=== PATIENT | female | born 1945 | race Caucasian/White ===

== ENCOUNTER 2018-04-16 02:31 | Outpatient (CLI) | payer BC, SELFPAY ==
[2018-04-16 08:34] LABS: Abs Immature Grans 0.02 k/cumm (0.0-0.09); Absolute Basophil Count 0.03 k/cumm (0.0-0.2); Absolute Eosinophil Count 0.17 k/cumm (0.0-0.7); Absolute Lymphocyte Count 1.71 k/cumm (1.2-3.4); Absolute Monocyte Count 0.75 k/cumm (0.11-0.7); Absolute Neutrophil Count 4.07 k/cumm (1.2-6.7); Basophils % 0.4; Eosinophils % 2.5; HCT 36.8 % (36.0-46.0); HGB 12.5 g/dL (12.0-15.5); Immature Grans % 0.3; Lymphocytes % 25.3; Mean Corpuscular Hemoglobin 31.7 pg (27.0-33.0); Mean Corpuscular Volume 93.4 fL (80-95); Mean Platelet Volume 13.3 fL (8.0-11.0); Monocytes % 11.1; Neutrophils % 60.4; RBC 3.94 m/cumm (4.00-5.20); RBC Distribution Width 13.6 % (11.7-14.6); White Blood Cell Count 6.75 k/cumm (4.4-10.8)
[2018-04-16 09:06] LABS: Hemoglobin A1C 7.9 % (4.5-6.2)
[2018-04-16 09:14] LABS: Platelet Count 91 x1000/uL (130-400)
[2018-04-16 09:19] LABS: ALT 37 U/L (12-78); AST 33 U/L (15-37); Albumin 3.2 g/dL (3.4-5.0); Alkaline Phosphatase 67 U/L (46-116); Anion Gap 11.5 mmol/L (3-11); BUN 15 mg/dL (7-18); Bilirubin, Total 0.9 mg/dL (0.2-1.0); CO2 27.5 mmol/L (21.0-32.0); CREATININE 0.53 mg/dL (0.55-1.02); Calcium 9.2 mg/dL (8.5-10.1); Chloride 103 mmol/L (98-107); Cholesterol 130 mg/dL (50-200); Glucose 174 mg/dL (70-100); HDL Cholesterol 40 mg/dL (40-60); LDL CHOLESTEROL 53 mg/dL (<100); Magnesium 1.2 mg/dL (1.8-2.4); Potassium 3.4 mmol/L (3.5-5.1); Sodium 142 mmol/L (136-145); Total Protein 6.7 g/dL (6.4-8.2); Triglyceride 225 mg/dL (30-150)
[2018-04-16 09:33] LABS: Uric Acid 4.1 mg/dL (2.6-6.0)
== END 2018-04-16 02:51 ==
PROVIDERS: PCP Nurse Practitioner Family; Visit Provider Nurse Practitioner Family
DX: I10 Essential (primary) hypertension (principal); E11.9 Type 2 diabetes mellitus without complications; E78.5 Hyperlipidemia, unspecified; E83.42 Hypomagnesemia; M10.9 Gout, unspecified
CPT/HCPCS: 36415; 80053; 80061; 83721; 82043; 82570; 83036; 83735; 84550; 85025

== ENCOUNTER 2019-01-14 16:04 | Outpatient (CLI) | payer BC, SELFPAY ==
[2019-01-14 17:23] LABS: Magnesium 1.5 mg/dL (1.8-2.4); Potassium 3.7 mmol/L (3.5-5.1)
== END 2019-01-14 16:24 ==
PROVIDERS: PCP Nurse Practitioner Family; Visit Provider Nurse Practitioner Family
DX: E83.42 Hypomagnesemia (principal); E87.6 Hypokalemia
CPT/HCPCS: 36415; 83735; 84132

== ENCOUNTER 2019-02-13 00:20 | Outpatient (CLI) | payer BC, SELFPAY ==
--- NOTE | 2019-02-13 14:03 | DI.US_ITS ---
APPROVED REPORT Conclusion Left Ventricle : The left ventricle is normal size. Moderate concentric left ventricular hypertrophy. There is grade 2 diastolic dysfunction LVEF is 65-70%. Right Ventricle : The right ventricle is normal size. The right ventricular systolic function is norm al. Atria : Left atrium is moderately dilated. The right atrium size is normal. Lipomatus atrial septal h ypertrophy is present. Aortic Valve : Aortic valve is trileaflet and mobile. The Aortic valve is mildly sclerotic, moderatel y thickened leaflets. Mild aortic stenosis. No aortic regurgitation is present. Mitral Valve : Moderate mitral annular calcification. The mitral valve is thickened but opens well. M ild mitral regurgitation. No evidence of mitral valve stenosis. Tricuspid Valve : The tricuspid valve is normal in structure. Mild tricuspid regurgitation. Pulmonic Valve : Pulmonic valve is not well visualized. IVC is normal in size and collapses >50% with inspiration. RVSP is estimated to be about 40 mmHg There is no prior echocardiogram available for comparison EXAM: Comprehensive 2D, Doppler, and color-flow Echocardiogram Patient Location: Out-Patient Professor Of Literacy: JASON Gary (AE) Rhythm: NSR Indications: newly recognized heart murmur systolic R01.1.auscult best in aortic region Left Ventricle The left ventricle is normal size. Left ventricular systolic function is hyperdynamic. Moderate andrae ntric left ventricular hypertrophy. Frequent PVCs make wall motion assessment difficult. Likely manish l There is grade 2 diastolic dysfunction LVEF is 65-70%. Right Ventricle The right ventricle is normal size. The right ventricular systolic function is normal. Atria Left atrium is moderately dilated. The right atrium size is normal. Lipomatus atrial septal hypertrop hy is present. Aortic Valve Aortic valve is trileaflet and mobile. The Aortic valve is mildly sclerotic, moderately thickened rm flets. Mild aortic stenosis. No aortic regurgitation is present. Mitral Valve Moderate mitral annular calcification. The mitral valve is thickened but opens well. No evidence of m itral valve stenosis. Mild mitral regurgitation. Tricuspid Valve The tricuspid valve is normal in structure. Mild tricuspid regurgitation. Pulmonic Valve Pulmonic valve is not well visualized. Trace pulmonic regurgitation. Great Vessels The aortic root is normal in size. Aortic arch is 3.0 cm IVC is normal in size and collapses >50% wit h inspiration. Pericardium There is no pericardial effusion. There is no pleural effusion. 2D Dimensions IVSd 1.67 cm F: 0.6-1.0 LV EDV A2C 95.20 mL PWd 1.30 cm F: 0.6 - 1.0 LV EDV A4C 92.00 mL LVDd 5.07 cm F: 3.9 - 5.3 LA Volume Index A2C 44.06 mL/m2 LVDs 3.10 cm F: 2.2 - 3.5 LA Volume Index A4C 55.29 mL/m2 Aortic Root 2.90 cm F: 2.7 - 3.3 LA Volume Index Biplane 50.88 mL/m2 RA Area A4C 10.63 cm2 LA Area A4C 28.08 cm2 LVOT 2.10 cm (M/F) 1.5-2.5 LA Area A2C 25.84 cm2 Ascending Aorta 3.19 cm F: 2.3 - 3.1 EF AP4 61.96 % LVEF (Teich) 68.96 % EF AP2 64.39 % LVEF (Leiva's) 64.12 % F: 54 - 74 EF BP 64.12 % LV Volume 72.41 mL F: 46 - 106 LV Volume Index 36.75 mL/m2 F: 29 - 61 FS 38.87 % LV Diastology E Decel Time 209.00 (160-240 msec) E/A Ratio 0.6 MED E' 0.07 (>0.07 m/s) LV E/e MED 9.93 (<14) LAT E' 0.07 (>0.1 m/s) LV E/e LAT 9.07 (<14) Pulm Vein s 0.66 m/s PV S/D Ratio 1.50 Pulm Vein d 0.44 m/s Pulm Vein a 0.43 m/s A-A Duration 149.18 msec Aortic Valve LVOT Area 3.47 cm2 LVOT Peak Juliocesar. 1.41 m/s LVOT Mean Juliocesar. 1.07 m/s XIAO Vmax 0.00 m/s LVOT Peak Gr. 7.99 mmHg XIAO Vmax Index 0.80 cm2/m2 LVOT Mean Gr. 5.06 mmHg XIAO Mean Juliocesar. 0.00 m/s LVOT VTI 0.29 m XIAO Mean Juliocesar. Index 0.93 cm2/m2 AoV Peak Juliocesar. 3.10 (0.5-1.3 m/s) AoV Mean Juliocesar. 2.03 m/s AO Peak GR. 38.55 mmHg AO Mean GR. 18.45 (<5 mmHg) AO VTI 0.56 (0.18-0.25 m) XIAO (VTI) 1.78 (2.5-4.5 cm2) XIAO (VTI) Index 0.90 cm/m2 Mitral Valve MV E Max Juliocesar. 0.68 (0.4-1.3 m/s) MV A Velocity 1.16 (0.4-1.3 m/s) E/A Ratio 0.58 MV Decel. Time 208.65 (160-240 msec) MV Mean Gr. 2.10 (<2mmHg) MV PHT 60.51 msec MVA PHT 3.64 cm2 Tricuspid Valve TR P. Velocity 3.06 m/s TV Regurg Vmax 3.06 m/s TR P. Gradient 37.55 mmHg
== END 2019-02-13 00:40 ==
PROVIDERS: PCP Nurse Practitioner Family; Visit Provider Nurse Practitioner Family
DX: R01.1 Cardiac murmur, unspecified (principal); I35.0 Nonrheumatic aortic (valve) stenosis; I34.8 Other nonrheumatic mitral valve disorders; I10 Essential (primary) hypertension
CPT/HCPCS: 93306

== ENCOUNTER 2019-11-11 03:48 | Outpatient (CLI) | payer MEDICARE, BC, SELFPAY ==
[2019-11-11 09:31] LABS: Abs Immature Grans 0.01 k/cumm (0.0-0.09); Absolute Basophil Count 0.01 k/cumm (0.0-0.2); Absolute Eosinophil Count 0.23 k/cumm (0.0-0.7); Absolute Lymphocyte Count 1.07 k/cumm (1.2-3.4); Absolute Monocyte Count 0.61 k/cumm (0.11-0.7); Basophils % 0.2; Eosinophils % 4.2; HCT 36.6 % (36.0-46.0); HGB 12.1 g/dL (12.0-15.5); Immature Grans % 0.2 %; Lymphocytes % 19.3; Mean Corp. HGB Concentration 33.1 g/dL (32.0-36.0); Mean Corpuscular Hemoglobin 30.8 pg (27.0-33.0); Mean Corpuscular Volume 93.1 fL (80-95); Mean Platelet Volume 13.5 fL (8.0-11.0); Neutrophils % 65.1; Platelet Count 131 x1000/uL (130-400); RBC 3.93 m/cumm (4.00-5.20); RBC Distribution Width 15.1 % (11.7-14.6); Reticulocyte 2.3 % (0.5-2.4); White Blood Cell Count 5.53 k/cumm (4.4-10.8)
[2019-11-11 10:33] LABS: Iron 54 ug/dL (50-170); Total Iron Binding Capacity 343 ug/dL (250-450); Transferrin Sat 16 % (15-50)
[2019-11-11 10:43] LABS: ESR 62 mm/hr (0-30)
[2019-11-11 11:01] LABS: Calculated LDL 56 mg/dL (<100); Cholesterol 131 mg/dL (<200); Ferritin 72 ng/mL (8-252); Folate > 20.0 ng/mL (8.6-20.0); HDL Cholesterol 35 mg/dL (40-60); Magnesium 1.8 mg/dL (1.8-2.4); Triglyceride 200 mg/dL (<150); Vitamin B12 744 pg/mL (193-986)
[2019-11-11 11:09] LABS: C-Reactive Protein 0.46 mg/dL (0.0-0.3)
== END 2019-11-11 04:08 ==
PROVIDERS: PCP Nurse Practitioner Family; Visit Provider Nurse Practitioner Family
DX: E78.5 Hyperlipidemia, unspecified (principal); D64.9 Anemia, unspecified; E83.42 Hypomagnesemia
CPT/HCPCS: 36415; 80061; 85652; 82272; 82607; 82728; 82746; 83540; 83550; 83735; 85025; 85045; 86140

== ENCOUNTER 2020-01-16 08:52 | Outpatient (CLI) | payer MEDICARE, BC, SELFPAY ==
[2020-01-19 01:33] LABS: SARS-CoV-2 RNA Undetected (Undetected); SARS-CoV-2 Specimen Source Nasal
== END 2020-01-16 09:12 ==
PROVIDERS: PCP Nurse Practitioner Family; Visit Provider Nurse Practitioner Family
DX: Z11.59 Encounter for screening for other viral diseases (principal)
CPT/HCPCS: U0003

== ENCOUNTER 2020-04-02 14:46 | Outpatient (CLI) | payer MEDICARE, BC, SELFPAY ==
--- NOTE | 2020-04-19 09:01 | W.ZIOMONITOR ---
Date of service: 04/19/20 Time of Service: 09:01 14 Day Philanthropy Officer Referring Provider:: Beto Indications:: Palps Note: There is a 14-day monitor ordered for indication of palpitations. ?The patient was in normal sinus rhythm for the majority of the recording with an average heart rate of 82 bpm. ?There were 32 episodes of supraventricular tachycardia with the longest lasting 18 beats at a rate of 188 bpm. ?There were rare supraventricular ectopic beats and rare PVCs. ?There were 3 total runs of ventricular tachycardia with the longest lasting 5 beats. ?There were no episodes of atrial fibrillation, no pauses greater than 3 seconds and no evidence of high degree heart block. ?There was one patient recorded event which corresponds to changing the adhesive on the patch. No arrhythmia was detected.
== END 2020-04-02 15:06 ==
PROVIDERS: PCP Nurse Practitioner Family; Visit Provider Nurse Practitioner Family
DX: I65.23 Occlusion and stenosis of bilateral carotid arteries (principal); R00.2 Palpitations; R09.89 Other specified symptoms and signs involving the circulatory and respiratory systems; I47.1 Supraventricular tachycardia; I47.2 Ventricular tachycardia
CPT/HCPCS: 0296T

== ENCOUNTER 2020-04-05 03:07 | Outpatient (CLI) | payer MEDICARE, BC, SELFPAY ==
[2020-04-05 12:11] LABS: TSH (W/Ref FT4) 1.96 uIU/mL (0.36-3.74)
== END 2020-04-05 03:27 ==
PROVIDERS: PCP Nurse Practitioner Family; Visit Provider Nurse Practitioner Family
DX: R00.2 Palpitations (principal); I65.23 Occlusion and stenosis of bilateral carotid arteries; R09.89 Other specified symptoms and signs involving the circulatory and respiratory systems
CPT/HCPCS: 36415; 84443

== ENCOUNTER 2020-04-06 01:43 | Outpatient (CLI) | payer MEDICARE, BC, SELFPAY ==
--- NOTE | 2020-04-06 07:45 | DI.US_ITS ---
EXAM: US CAROTID CLINICAL HISTORY: Eval carotid calcification (L>R) seen on dental xrAY,CAROTID BRUIT,PALPITAT TECHNIQUE: Ultrasound performed using standard protocol. COMPARISON: No exams were available for comparison FINDINGS: Duplex evaluation of the carotid circulation was performed according to the usual protocol. Note is made of bilateral antegrade vertebral flow. There is mild visible atheromatous plaque in the carotid bifurcations bilaterally. Flow velocities in the common carotid arteries are within normal limits. In the right internal carot id artery, there is flow velocity elevation to 133 cm/second, consistent with stenosis of 50-69 perce nt of the luminal diameter of the vessel. Flow velocities in left internal carotid artery are within normal limits. No hemodynamically signifi cant stenosis seen. IMPRESSION: Flow velocity elevation in right internal carotid artery consistent with 50-[address] stenosis. Incidental note is made of a 26 millimeter in diameter mixed echogenicity right thyroid lobe nodule. Correlation with thyroid ultrasound recommended to evaluate likelihood of malignancy. DATA REPOSITORY:
--- NOTE | 2020-04-19 08:55 | W.ZIOMONITOR ---
Date of service: 04/19/20 Time of Service: 08:55
== END 2020-04-06 02:03 ==
PROVIDERS: PCP Nurse Practitioner Family; Visit Provider Nurse Practitioner Family
DX: I65.21 Occlusion and stenosis of right carotid artery (principal); E04.1 Nontoxic single thyroid nodule
CPT/HCPCS: 93880

== ENCOUNTER 2021-02-03 03:22 | Outpatient (CLI) | payer MEDICARE, BC, SELFPAY ==
[2021-02-03 10:41] LABS: Abs Immature Grans 0.01 10^3/uL (0.0-0.06); Absolute Basophil Count 0.02 10^3/uL (0.0-0.2); Absolute Eosinophil Count 0.11 10^3/uL (0.0-0.7); Absolute Lymphocyte Count 0.79 10^3/uL (1.2-3.4); Absolute Monocyte Count 0.56 10^3/uL (0.1-0.8); Basophils % 0.4; Eosinophils % 2.1; HGB 9.6 g/dL (11.2-15.7); Immature Grans % 0.2; Lymphocytes % 15.2; MCH 30.3 pg (27.0-33.0); MCV 94.6 fL (80-95); MPV 13.6 fL (8.0-11.0); Monocytes % 10.8; Neutrophils % 71.3; Nucleated RBC 0 %; RBC 3.17 10^6/uL (3.93-5.22); WBC 5.19 10^3/uL (4.4-10.8)
[2021-02-03 11:01] LABS: Diff Comment Diff Reviewed; Platelet Count 91 10^3/uL (130-400); RBC Morphology Normal
[2021-02-03 11:40] LABS: ALT 42 U/L (14-59); AST 26 U/L (15-37); Albumin 3.3 g/dL (3.4-5.0); Alkaline Phosphatase 116 U/L (46-116); Anion Gap 9.7 mmol/L (3-11); BUN 33 mg/dL (7-18); Bilirubin, Total 0.7 mg/dL (0.2-1.0); CO2 28.3 mmol/L (21.0-32.0); CREATININE 0.9 mg/dL (0.55-1.02); Calcium 8.9 mg/dL (8.5-10.1); Calculated LDL 59 mg/dL (<100); Chloride 103 mmol/L (98-107); Cholesterol 144 mg/dL (<200); Glucose 334 mg/dL (74-106); HDL Cholesterol 38 mg/dL (40-60); Magnesium 1.4 mg/dL (1.8-2.4); Potassium 3.8 mmol/L (3.5-5.1); Sodium 141 mmol/L (136-145); Total Protein 6.6 g/dL (6.4-8.2); Triglyceride 236 mg/dL (<150)
[2021-02-04 11:06] LABS: Hepatitis C Ab w Rflx HCV PCR Negative (Negative)
== END 2021-02-03 03:23 | disposition home or self-care (01) ==
LOC: LBO 03:22
PROVIDERS: PCP Nurse Practitioner Family; Visit Provider Nurse Practitioner Family
DX: E11.65 Type 2 diabetes mellitus with hyperglycemia (principal); I10 Essential (primary) hypertension; E78.5 Hyperlipidemia, unspecified; E83.42 Hypomagnesemia; K76.0 Fatty (change of) liver, not elsewhere classified; Z11.59 Encounter for screening for other viral diseases; Z79.4 Long term (current) use of insulin; Z51.81 Encounter for therapeutic drug level monitoring
CPT/HCPCS: 36415; 80053; 80061; 86803; 83735; 85025

== ENCOUNTER 2021-02-18 02:15 | Outpatient (CLI) | payer MEDICARE, BC, SELFPAY ==
[2021-02-18 14:18] LABS: Reticulocyte 1.8 % (0.5-2.4)
[2021-02-18 15:01] LABS: Iron 70 ug/dL (50-170); Total Iron Binding Capacity 366 ug/dL (250-450); Transferrin Sat 19 % (15-50)
[2021-02-18 15:30] LABS: Ferritin 18 ng/mL (8-252); Vitamin B12 787 pg/mL (193-986)
[2021-02-18 15:50] LABS: Folate > 20.0 ng/mL (8.6-20.0)
[2021-02-18 16:20] LABS: LDH 172 U/L (81-234)
[2021-02-19 13:39] LABS: Erythropoietin 42.6 mIU/mL (2.6 - 18.5)
== END 2021-02-18 02:16 | disposition home or self-care (01) ==
LOC: LBO 02:15
PROVIDERS: PCP Nurse Practitioner Family; Visit Provider Nurse Practitioner Family
DX: D64.9 Anemia, unspecified (principal); D69.6 Thrombocytopenia, unspecified
CPT/HCPCS: 82668; 82607; 82728; 82746; 83540; 83550; 83615; 85045

== ENCOUNTER 2021-05-05 02:08 | Outpatient (CLI) | payer MEDICARE, SELFPAY ==
--- NOTE | 2021-05-05 06:30 | DI.US_ITS ---
Exam(s) US ABDOMEN EXAM: US ABDOMEN CLINICAL HISTORY: f/u NAFLD w/new thrombocytopenia,hypoalbum ?cirrhosis,k76.0 TECHNIQUE: Ultrasound abdomen performed using standard protocol. COMPARISON: US ABDOMEN ULTRASOUND (P) from 02/04/2010 CT RENAL COLIC WO CONTRAST from 08/13/2014 FINDINGS: ABDOMINAL AORTA AND IVC: Visualized portions normal caliber. PANCREAS: Normal where visualized. LIVER: Heterogeneous echogenicity. The liver measures 18 cm long. There is a nodular contour of the liver. Hepatopedal flow in the Portal Vein. GALLBLADDER: Status post cholecystectomy. BILIARY SYSTEM: Common bile duct measures < 7 mm. No intrahepatic biliary ductal dilation. DUNCAN'S SIGN: Negative. KIDNEYS: Kidneys are symmetric in size. 0.7 cm echogenic focus in the upper pole of the left kidney w hich may represent a nonobstructing stone. No evidence of hydronephrosis. Simple left renal cysts. The largest measures 1.4 cm. SPLEEN: Splenomegaly. The spleen measures 15.5 cm in long. ASCITES: None seen. IMPRESSION: 1. Finding sonographically suggesting hepatic cirrhosis. 2. Hepatosplenomegaly. 3. Status post cholecystectomy. No biliary ductal dilatation. DATA REPOSITORY:
== END 2021-05-05 02:28 ==
PROVIDERS: PCP Nurse Practitioner Family; Visit Provider Nurse Practitioner Family
DX: K76.0 Fatty (change of) liver, not elsewhere classified (principal); R16.2 Hepatomegaly with splenomegaly, not elsewhere classified
CPT/HCPCS: 76700

== ENCOUNTER 2021-05-11 01:09 | Outpatient (CLI) | payer MEDICARE, SELFPAY ==
--- NOTE | 2021-05-11 07:15 | DI.US_ITS ---
Exam(s) US CAROTID EXAM: US CAROTID CLINICAL HISTORY: 1 year f/u carotid stenosis,I65.21. TECHNIQUE: Ultrasound carotids performed using grayscale, color-flow, and spectral Doppler imaging. COMPARISON: US US ABDOMEN from 05/05/2021 FINDINGS: RIGHT CAROTID ARTERY: There is minimal plaque in the right common carotid artery. Some partially calcified plaque is seen on the posterior wall of carotid bulb. No elevated velocitie s at this level. Partially calcified plaque also seen extending into the proximal right ICA. Slight ly elevated velocity recorded in the mid right ICA in the neck (130 cm/sec peak systolic velocity/38 cm/sec end-diastolic velocity) consistent with stenosis between 50-69 percent. LEFT CAROTID ARTERY: Minimal plaque noted in the left common carotid artery. At the left carotid bulb and proximal left ICA there is some calcified plaque noted. Although no vin vated velocities are seen at this level, there is a recording of 142/39 in the upper left ICA in the neck, implying that the stenosis is approximately 50-69 percent. VERTEBRAL ARTERIES: Antegrade flow is demonstrated in both vertebral arteries. Measurements: R Bulb: 68.8cm/s PS / 14.8cm/s ED R CCA: 68.8cm/s PS / 15.4cm/s ED R ECA: 123.4cm/s PS / 12.9cm/s ED R ICA Prox: 113.2cm/s PS /32.2cm/s ED R ICA Mid: 129.7cm/s PS / 38cm/s ED R ICA Distal: 117.3cm/s PS /37.2cm/s ED R Vert: 54.4cm/s PS / 14.5cm/s R SVR: 1.89 R DVR: 2.47 L Bulb: 71.7cm/s PS /15cm/s ED L CCA: 83.9cm/s PS / 18.5cm/s ED L ECA: 82.7cm/s PS /15cm/s ED L ICA Prox:71.1cm/s PS / 17.9cm/s ED L ICA Mid: 111.8cm/sPS / 32.8cm/s ED L ICA Distal: 142.1cm/s PS / 38.8cm/s ED L Vert: 57.2cm/s PS / 18.6cm/s ED L SVR: 1.69 L DVR: 2.1 IMPRESSION: 1. There is calcified plaque at the level of the carotid bulbs and proximal internal carotid arteries bilaterally. Velocity recordings indicate that stenosis is approximately 50-69 percent bilaterally. 2. Antegrade flow is demonstrated in both vertebral arteries. Criteria for Carotid Stenosis: Normal: ICA PSV <125 cm/s no plaque or intimal thickening is visible. <50% stenosis: ICA PSV <125 cm/s and plaque or intimal thickening is visible. 50-69% stenosis: ICA PSV is 125-250 cm/s and plaque is visible. >70% stenosis to near occlusion: ICA PSV >250 cm/s with visible plaque and luminal narrowing. DATA REPOSITORY:
== END 2021-05-11 01:29 ==
PROVIDERS: PCP Nurse Practitioner Family; Visit Provider Nurse Practitioner Family
DX: I65.21 Occlusion and stenosis of right carotid artery (principal)
CPT/HCPCS: 93880

== ENCOUNTER 2021-05-17 02:40 | Outpatient (CLI) | payer MEDICARE, SELFPAY ==
[2021-05-18 09:44] LABS: HBs Antibody, Quant 3.3 mIU/mL (See Note); Hepatitis B Surface Ab Negative (See Note)
[2021-05-18 09:58] LABS: Hepatitis B Surface Ag Negative (Negative)
[2021-05-18 10:46] LABS: Hep B Core Antibody Negative (Negative)
[2021-05-18 11:13] LABS: Hep A Total Ab w Rflx IgM Negative (Negative)
== END 2021-05-17 02:41 | disposition home or self-care (01) ==
LOC: LBO 02:40
PROVIDERS: PCP Nurse Practitioner Family; Visit Provider Nurse Practitioner Family
DX: K74.60 Unspecified cirrhosis of liver (principal)
CPT/HCPCS: 36415; 86704; 86706; 86709; 87340

== ENCOUNTER 2021-05-20 13:18 | Outpatient (CLI) | payer MEDICARE, SELFPAY ==
--- NOTE | 2021-05-20 13:15 | RT.EKG_ITS ---
APPROVED REPORT Exam: Resting ECG Reason for Exam: Irregular heart beat Patient Location: O HR:90 bpm ECG Measurements Heart Rate 90 AXIS AZ 166 P 23 QRSd 97 QRS -41 QT 387 T 81 QTc 471 Conclusion Sinus rhythm...normal P axis, V-rate 60- 99 Atrial premature complexes...SV complexes w/ short R-R intvls LAFB
== END 2021-05-20 13:19 | disposition home or self-care (01) ==
LOC: DI.KIM 13:19
PROVIDERS: PCP Nurse Practitioner Family; Visit Provider Nurse Practitioner Family
DX: I49.8 Other specified cardiac arrhythmias (principal); I49.1 Atrial premature depolarization; I44.4 Left anterior fascicular block
CPT/HCPCS: 93010

== ENCOUNTER 2021-05-23 03:57 | Outpatient (RCR) | payer MEDICARE, SELFPAY ==
--- NOTE | 2021-05-23 11:30 | HOLTER_ITS ---
APPROVED REPORT Conclusion This is a 48-hour Holter monitor ordered for an irregular heart rate Predominant rhythm was sinus with an average heart rate of 92. Minimum was 66, maximum 124 There were occasional ventricular ectopic beats, rare couplets, no ventricular tachycardia There were occasional atrial premature beats. There were multiple 3 beat atrial runs A total of 25 self-limited atrial runs occurred, the longest of which was 11 beats in duration There was no atrial fibrillation, no high-grade AV block, no pauses greater than 3 seconds Patient symptoms corresponded to sinus tachycardia rate 109
== END 2021-05-30 23:59 | disposition home or self-care (01) ==
LOC: RT 03:57
PROVIDERS: PCP Nurse Practitioner Family; Visit Provider Nurse Practitioner Family
DX: I49.8 Other specified cardiac arrhythmias (principal); I49.3 Ventricular premature depolarization; I49.1 Atrial premature depolarization; R00.0 Tachycardia, unspecified
CPT/HCPCS: 93227; 93225; 93226

== ENCOUNTER 2021-06-07 00:56 | Outpatient (CLI) | payer MEDICARE, SELFPAY ==
--- NOTE | 2021-06-07 07:00 | DI.NM_ITS ---
APPROVED REPORT Exam: Pharmacologic Patient Location: Out-Patient Room/Bed: Stress Nurse: Charlee Modi RN Ordering Provider:CRISTAL LOYA, Contact Number: [phone] BMI: 35.95 Baseline Rhythm: Sinus Rhythm Comment: Occasional PACs and PVCs Indications: EKG changes Q waves, r/o ischemia, irregular heart beat Medical History Medical History: Aortic stenosis, arthritis, asthma, CKD, hypertension, hyperlipidemia, obesity, TRUMAN w/ CPAP, TIIDM, non-etoh fatty liver Cardiac Medications: Terazosin, metformin, losartan, linagliptin, insulin glargine, HCTZ, glimepiride , furosemide, atorvastatin, aspirin, albuterol sulfate Allergies: Sulfa, Carbonic anhydrase inhibitors, metoclopramide, benazepril, oxycodone Cardiac Risk Factors: Hypertension, hyperlipidemia, diabetes, asthma, obesity, family hx Previous Cardiac Procedures: None Pretest Chest Pain Characteristics: None Exercise History: Sedentary Physical Disabilities: Legs Lung Sounds: Diminished bases Heart Sounds: Irregular Stress Test Details Test: Pharmacologic stress was paired with low level exercise. Reason for pharmacologic stress test: physical limitation. Nuclear Acquisition: Rest Tc-99m/Stress Tc-99m 1 day Rest Isotope: Tc-99m Sestamibi. Dose: 11.0 Date: 06/07/2021 Injection Time: 0900 Stress Isotope: Tc-99m Sestamibi. Dose: 36.5 Date: 06/07/2021 Injection Time: 1027 HR Resting HR Supine: 83 bpm Max Heart Rate (APMHR): 145.474701 bpm Resting HR Standin bpm Target HR (85% APMHR): 123.966419 bpm Max HR Achieved: 140 bpm % of APMHR: 96.55 Recovery HR: 98 bpm BP Resting BP Supine: 148/82 mmHg Resting BP Standin/80 mmHg Max BP: 180/84 mmHg Recovery BP: 134/68 mmHg ECG Resting ECG: Sinus Rhythm Ectopy: Occasional PACs and PVCs Stress ECG: Sinus Tachycardia ST Change: No significant ST segment changes noted Arrhythmia: Frequent PACs and PVCs Recovery ECG: Sinus Rhythm Recovery ST Change: No significant ST segment changes noted Recovery Arrhythmia: Occasional PACs and PVCs Clinical Stress Symptoms: General Fatigue, Dyspnea Rate Pressure Product: [id number] Stress ECG Conclusion 1. Resting electrocardiogram showed poor R wave progression 2. Patient underwent low-level exercise coupled with pharmacologic stress 3. Normal heart rate and blood pressure response to exercise. The patient achieved 96% of predicted heart rate for age 4. There was no electrocardiographic evidence of myocardial ischemia 5. Occasional atrial and ventricular ectopic beats Stress Test Summary STAGE HR BP Symptoms NOTES Supine 83 148/82 Mild lightheadedness SpO2 95% 1 min post Lexiscan injection 126 164/84 Mild SOB SpO2 93% 3 min post Lexiscan injection 121 180/84 Mild SOB SpO2 95% 6 min post Lexiscan injection 109 174/74 SOB resolved SpO2 96% 9 min post Lexiscan injection 98 134/68 SpO2 96% Pt had baseline lightheadedness prior to stress testing. Pt stated lightheadedness resolved by end of test. Tolerated Regadenoson and low level exercise at 08.mph and 0% grade well. MPI Conclusion Normal myocardial perfusion. There is no evidence of ischemia or prior infarction. EF 53%, normal w all motion Radiologist Interpretation Radiologist Interpretation by: Justin Nichols MD Interpretation Date/Time: 06/07/2021 16:18:01
[2021-06-07] MEDS: Regadenoson 0.4 MG/5 ML SYR IVP (10:51)
== END 2021-06-07 01:16 ==
PROVIDERS: PCP Nurse Practitioner Family; Visit Provider Nurse Practitioner Family
DX: I49.8 Other specified cardiac arrhythmias (principal); R94.31 Abnormal electrocardiogram [ECG] [EKG]; I10 Essential (primary) hypertension; E66.8 Other obesity; E78.5 Hyperlipidemia, unspecified; E11.9 Type 2 diabetes mellitus without complications; J45.909 Unspecified asthma, uncomplicated; Z82.49 Family history of ischemic heart disease and other diseases of the circulatory system
CPT/HCPCS: 78452; 93016; 93018; 93017; J2785

== ENCOUNTER 2021-08-18 16:18 | Outpatient (REF) | payer MEDICARE, SELFPAY ==
[2021-08-18 18:40] LABS: Anion Gap 9.6 mmol/L (3-11); BUN 63 mg/dL (7-18); CO2 23.4 mmol/L (21.0-32.0); CREATININE 1.2 mg/dL (0.55-1.02); Calcium 9.8 mg/dL (8.5-10.1); Chloride 105 mmol/L (98-107); Glucose 117 mg/dL (74-106); Sodium 138 mmol/L (136-145)
== END 2021-08-18 16:19 | disposition home or self-care (01) ==
LOC: LBN 16:18
PROVIDERS: PCP Nurse Practitioner Family; Visit Provider Nurse Practitioner Family
DX: E87.5 Hyperkalemia (principal); N17.9 Acute kidney failure, unspecified
CPT/HCPCS: 80048

== ENCOUNTER 2021-08-25 03:01 | Outpatient (CLI) | payer MEDICARE, SELFPAY ==
[2021-08-25 11:09] LABS: BUN 31 mg/dL (7-18); Calcium 8.6 mg/dL (8.5-10.1); Chloride 107 mmol/L (98-107); Estimated GFR 54.05 (mL/min/1.73m2); Glucose 223 mg/dL (74-106); Potassium 4.5 mmol/L (3.5-5.1); Sodium 141 mmol/L (136-145)
== END 2021-08-25 03:02 | disposition home or self-care (01) ==
LOC: LBO 03:01
PROVIDERS: PCP Nurse Practitioner Family; Visit Provider Nurse Practitioner Family
DX: N17.9 Acute kidney failure, unspecified (principal); N18.9 Chronic kidney disease, unspecified
CPT/HCPCS: 36415; 80048

== ENCOUNTER 2021-09-07 01:40 | Outpatient (CLI) | payer MEDICARE, SELFPAY ==
[2021-09-07 11:38] LABS: Anion Gap 10.4 mmol/L (3-11); BUN 28 mg/dL (7-18); CO2 26.6 mmol/L (21.0-32.0); CREATININE 0.9 mg/dL (0.55-1.02); Calcium 8.7 mg/dL (8.5-10.1); Chloride 105 mmol/L (98-107); Glucose 306 mg/dL (74-106); Potassium 3.9 mmol/L (3.5-5.1); Sodium 142 mmol/L (136-145)
== END 2021-09-07 01:41 | disposition home or self-care (01) ==
LOC: LBO 01:40
PROVIDERS: PCP Nurse Practitioner Family; Visit Provider Nurse Practitioner Family
DX: N17.9 Acute kidney failure, unspecified (principal)
CPT/HCPCS: 36415; 80048

== ENCOUNTER → 2021-09-14 09:19 | Outpatient (CLI) | payer MEDICARE, SELFPAY ==
--- NOTE | 2021-09-14 10:40 | DI.US_ITS ---
APPROVED REPORT EXAM: Comprehensive 2D, Doppler, and color-flow Echocardiogram Patient Location: Out-Patient Freight Tallier: Arti Sal RDCS (AE) Indications: Dyspnea on exertion, Aortic stenosis Other Information Study Quality: Adequate Conclusion Moderate concentric left ventricular hypertrophy. Estimated ejection fraction is 55 to 60%. Wall mo tion is normal Normal right ventricular size and systolic function The left atrium is moderately dilated. The right atrium is normal in size The aortic valve is sclerotic and trileaflet without stenosis or regurgitation Moderate mitral annular calcification. Moderate mitral regurgitation Normal tricuspid valve with mild regurgitation. Estimated right ventricular systolic pressure is 26 mmHg Mildly dilated ascending aorta measuring 3.64 cm Wall motion Left Ventricle The left ventricle is normal size. The left ventricular systolic function is normal. The left ventric ular ejection fraction is within the normal range. Moderate concentric left ventricular hypertrophy. There is normal LV segmental wall motion. There is no ventricular septal defect visualized. LVEF is 5 8%. Right Ventricle The right ventricle is normal size. The right ventricular systolic function is normal. The RVSP is 25 .7 mmHg. Atria Left atrium is moderately dilated. The right atrium size is normal. The interatrial septum is intact with no evidence for an atrial septal defect. Aortic Valve Aortic valve is calcified. Aortic valve is trileaflet. No hemodynamically significant valvular aortic stenosis. No aortic regurgitation is present. Mitral Valve Moderate mitral annular calcification. No evidence of mitral valve stenosis. Moderate mitral regurgit ation. Tricuspid Valve The tricuspid valve is normal in structure. There is no tricuspid valve stenosis. Mild tricuspid regu rgitation. Pulmonic Valve The pulmonary valve is normal in structure. There is no pulmonic valvular stenosis. There is no pulmo fredi valvular regurgitation. Great Vessels The aortic root is normal in size. The ascending aorta is mildly dilated. Aortic arch is normal in ca liber. IVC is normal in size and collapses >50% with inspiration. Pericardium There is no pericardial effusion. 2D Dimensions IVSD d PLAX 1.29 cm F: 0.6-1.0 LV Vol A2C d MOD 127.0 mL LVPW d PLAX 1.29 cm F: 0.6 - 1.0 LV Vol A4C d MOD 148.8 mL LVID d PLAX 4.35 cm F: 3.8 - 5.2 LA vol/ BSA A2C s A-L 140.1 mL/m2 LVDs 2.95 cm F: 2.2 - 3.5 LA vol/ BSA A4C s A-L 150.6 mL/m2 Ao Root d 2.81 cm F: 2.7 - 3.3 LA Vol/ BSA Biplane s A-L 155.7 mL/m2 RA Area A4C 17.27 cm2 LA Area A4C s MOD 31.42 cm2 RA Vol/ BSA A4C s A-L 53.7 mL/m2 LA Area A2C s MOD 28.27 cm2 Ao Asc Diam d 3.64 cm F: 2.3 - 3.1 LV EF A4C MOD 59.9 % LV EF Teichholz 59.3 % LV EF A2C MOD 57.9 % LVEF (Leiva's) 57.78 % F: 54 - 74 LV EF Biplane MOD 57.8 % LV Volume 157.18 mL F: 46 - 106 SV 80.68 mL LV Volume Index 198.96 mL/m2 F: 29 - 61 SV Index 100.97 mL/m2 LV Vol Biplane MOD 139.6 mL FS 31.20 % M-Mode TAPSE 2.67 cm (M/F) >1.7 LV Diastology MV E' medial 0.054 (>0.07 m/s) E/A Ratio 0.6 LV E/e MED 13.05 (<14) MV E Vmax 0.70 (0.4-1.3 m/s) MV E' lateral 0.066 (>0.1 m/s) MV A Vmax 1.25 (0.4-1.3 m/s) LV E/e LAT 10.60 (<14) MV E/A Ratio 0.56 MV E/E' medial 13.05 MV E/E' lateral 10.63 Aortic Valve LVOT Area 3.04 cm2 AoV Area Vmax 1.71 cm2 LVOT Vmax 1.11 m/s AoV Area/ BSA (Vmax) 2.15 cm2/m2 LVOT Mean Juliocesar. 0.76 m/s XIAO Mean Juliocesar. 1.72 cm2 LVOT Peak Grad 4.9 mmHg XIAO Mean Juliocesar. Index 2.16 cm2/m2 LVOT Mean Grad 2.7 mmHg LVOT VTI 0.259 m LVOT Diam s 1.95 cm AoV Vmax 1.97 m/s Velocity Ratio 0.56 AoV Mean Juliocesar. 1.35 m/s AoV Peak Grad 15.6 mmHg LVOT SV 78.72 mL AoV Mean Grad 8.2 mmHg AoV VTI 0.402 m AoV Area VTI 1.96 cm2 AoV Area/ BSA (VTI) 2.45 cm/m2 Mitral Valve MV DT 253 (160-240 msec) MR Vmax 5.25 m/s MV PHT 73 msec MR VTI 1.580 m MV Area PHT 3.00 cm2 MR Peak Grad 110.1 mmHg MV VTI 0.361 m MR Mean Grad 78.3 mmHg MV Area VTI 2.18 (4.0-6.0 cm2) Pulmonary Valve PV Vmax 1.21 (0.5-1.5 m/s) RVOT Peak Gr. 2.94 mmHg PV Peak Grad 5.9 mmHg RVOT Mean Gr. 1.50 mmHg PV Mean Grad 3.0 mmHg RVOT VTI 0.184 m PV VTI 0.248 m RVOT Vmax 0.86 m/s Tricuspid Valve TR Peak Grad 22.7 mmHg TR Vmax 2.38 m/s RA Pressure 3.00 mmHg RVSP (TR) 25.7 mmHg
== END ==
PROVIDERS: PCP Nurse Practitioner Family; Visit Provider Nurse Practitioner Family
DX: I35.0 Nonrheumatic aortic (valve) stenosis (principal); I49.9 Cardiac arrhythmia, unspecified; R06.00 Dyspnea, unspecified
CPT/HCPCS: 93306

== ENCOUNTER 2021-09-23 12:19 | Outpatient (CLI) | payer MEDICARE, SELFPAY ==
[2021-09-23 11:24] LABS: Anion Gap 11.9 mmol/L (3-11); BUN 32 mg/dL (7-18); CO2 25.1 mmol/L (21.0-32.0); CREATININE 1.2 mg/dL (0.55-1.02); Calcium 9.3 mg/dL (8.5-10.1); Chloride 104 mmol/L (98-107); Glucose 353 mg/dL (74-106); Potassium 4.3 mmol/L (3.5-5.1); Sodium 141 mmol/L (136-145)
== END 2021-09-23 12:20 | disposition home or self-care (01) ==
LOC: LBO 12:23
PROVIDERS: PCP Nurse Practitioner Family; Visit Provider Nurse Practitioner Family
DX: E87.5 Hyperkalemia (principal); I10 Essential (primary) hypertension; N17.9 Acute kidney failure, unspecified; N18.9 Chronic kidney disease, unspecified
CPT/HCPCS: 36415; 80048

== ENCOUNTER 2021-10-04 01:51 | Outpatient (CLI) | payer MEDICARE, SELFPAY ==
[2021-10-04 12:33] LABS: HCT 30.8 % (36.0-46.0); HGB 9.9 g/dL (11.2-15.7); MCH 31.3 pg (27.0-33.0); MCHC 32.1 % (32.0-36.0); MCV 98 fL (80-95); Platelet Count 101 10^3/uL (130-400); RBC 3.16 10^6/uL (3.93-5.22); RDW 14.7 % (11.7-14.6); WBC 5.34 10^3/uL (4.4-10.8)
[2021-10-04 12:44] LABS: Anion Gap 13.8 mmol/L (3-11); BUN 43 mg/dL (7-18); CO2 24.2 mmol/L (21.0-32.0); CREATININE 1.1 mg/dL (0.55-1.02); Chloride 104 mmol/L (98-107); Estimated GFR 48.42 (mL/min/1.73m2); Glucose 243 mg/dL (74-106); Potassium 4.2 mmol/L (3.5-5.1); Sodium 142 mmol/L (136-145)
== END 2021-10-04 01:52 | disposition home or self-care (01) ==
LOC: LOS 01:51
PROVIDERS: PCP Nurse Practitioner Family; Visit Provider Nurse Practitioner Adult Health
DX: D50.9 Iron deficiency anemia, unspecified (principal); E11.65 Type 2 diabetes mellitus with hyperglycemia; E87.5 Hyperkalemia; N17.9 Acute kidney failure, unspecified; Z79.4 Long term (current) use of insulin
CPT/HCPCS: 36415; 80048; 85027

== ENCOUNTER 2022-04-19 02:06 | Outpatient (CLI) | payer MEDICARE, SELFPAY ==
[2022-04-19 13:38] LABS: Abs Immature Grans 0.01 10^3/uL (0.0-0.06); Absolute Basophil Count 0.01 10^3/uL (0.0-0.2); Absolute Eosinophil Count 0.11 10^3/uL (0.0-0.7); Absolute Lymphocyte Count 0.82 10^3/uL (1.2-3.4); Absolute Monocyte Count 0.67 10^3/uL (0.1-0.8); Absolute Neutrophil Count 3.39 10^3/uL (1.2-6.7); Basophils % 0.2; Eosinophils % 2.2; HCT 34.2 % (36.0-46.0); Immature Grans % 0.2; Lymphocytes % 16.4; MCH 32.5 pg (27.0-33.0); MCHC 32.2 % (32.0-36.0); MCV 101 fL (80-95); Monocytes % 13.4; Neutrophils % 67.6; RBC 3.38 10^6/uL (3.93-5.22); RDW 14.3 % (11.7-14.6); RDW-SD 53.1 fL; WBC 5.01 10^3/uL (4.4-10.8)
[2022-04-19 13:51] LABS: Platelet Count 82 10^3/uL (130-400)
[2022-04-19 14:17] LABS: Ferritin 46 ng/mL (8-252)
== END 2022-04-19 02:07 | disposition home or self-care (01) ==
LOC: LBO 02:06
PROVIDERS: PCP Nurse Practitioner Family; Visit Provider Nurse Practitioner Adult Health
DX: D50.9 Iron deficiency anemia, unspecified (principal); D69.6 Thrombocytopenia, unspecified
CPT/HCPCS: 36415; 82728; 85025

== ENCOUNTER 2022-08-03 03:23 | Outpatient (CLI) | payer MEDICARE, SELFPAY ==
[2022-08-03 10:05] LABS: Calculated LDL 53 mg/dL (<100); Cholesterol 148 mg/dL (<200); HDL Cholesterol 39 mg/dL (40-60); Triglyceride 281 mg/dL (<150)
[2022-08-03 10:23] LABS: Uric Acid 5.1 mg/dL (2.6-6.0)
[2022-08-03 10:26] LABS: COMMENT (LAB VIEW ONLY) 69.91 mg/dL
[2022-08-03 10:31] LABS: Microalb ug/mg Crea 230.6 ug/mg Cr
== END 2022-08-03 03:24 | disposition home or self-care (01) ==
LOC: LBO 03:23
PROVIDERS: PCP Nurse Practitioner Family; Visit Provider Nurse Practitioner Family
DX: E11.9 Type 2 diabetes mellitus without complications (principal); E78.5 Hyperlipidemia, unspecified; M10.9 Gout, unspecified
CPT/HCPCS: 36415; 80061; 82043; 82570; 84550

== ENCOUNTER 2022-08-24 01:09 | Outpatient (CLI) | payer MEDICARE, SELFPAY ==
--- NOTE | 2022-08-24 07:00 | DI.US_ITS ---
Exam(s) US CAROTID EXAM: US CAROTID CLINICAL HISTORY: 1 yr f/u RT CAROTID STENOSIS,I65.21. TECHNIQUE: Ultrasound carotids performed using grayscale, color-flow, and spectral Doppler imaging. COMPARISON: US US CAROTID from 05/11/2021 FINDINGS: RIGHT CAROTID ARTERY: Plaque: Calcific plaque is seen in the carotid bulb. Velocity elevation: Yes. Please see below. LEFT CAROTID ARTERY: Plaque: Calcific plaque is seen in the proximal left ICA. Velocity elevation: None. VERTEBRAL ARTERIES: Antegrade flow. Measurements: R Bulb: 96.5 cm/s PS / 26.2 cm/s ED R CCA: 69.8 cm/s PS / 28.6 cm/s ED R ECA: 118.3 cm/s PS / 18.9 cm/s ED R ICA Prox: 147.1 cm/s PS / 44.9 cm/s ED R ICA Mid: 137.3 cm/s PS / 37 cm/s ED R ICA Distal: 96.3 cm/s PS /33.8 cm/s ED R Vert: 52.8 cm/s PS / 23.2 cm/s ED R SVR: 2.1 R DVR: 1.6 L Bulb: 86.5 cm/s PS / 26.4 cm/s ED L CCA: 75.4 cm/s PS / 28.4 cm/s ED L ECA: 95.4 cm/s PS / 11.8 cm/s ED L ICA Prox: 108.9 cm/s PS / 40 cm/s ED L ICA Mid: 121.6 cm/s PS / 38.6 cm/s ED L ICA Distal: 124.5 cm/s PS / 59.6 cm/s ED L Vert: 60.3 cm/s PS / 21.3 cm/s ED L SVR: 1.7 L DVR: 2.1 IMPRESSION: 1. Based on velocity measurements, there is approximately 50-69 percent stenosis in the right ICA. 2. No hemodynamically significant stenosis is seen on the left at this time. Criteria for Carotid Stenosis: Normal: ICA PSV <125 cm/s no plaque or intimal thickening is visible. <50% stenosis: ICA PSV <125 cm/s and plaque or intimal thickening is visible. 50-69% stenosis: ICA PSV is 125-250 cm/s and plaque is visible. >70% stenosis to near occlusion: ICA PSV >250 cm/s with visible plaque and luminal narrowing. DATA REPOSITORY:
== END 2022-08-24 01:29 ==
LOC: DI 01:09
PROVIDERS: PCP Nurse Practitioner Family; Visit Provider Nurse Practitioner Family
DX: I65.21 Occlusion and stenosis of right carotid artery (principal)
CPT/HCPCS: 93880

== ENCOUNTER 2023-05-22 16:10 | Outpatient (REF) | payer MEDICARE, SELFPAY ==
[2023-05-23 23:26] LABS: Campylobacter PCR Negative (Negative); Salmonella PCR Negative (Negative); Shiga Toxin PCR Negative (Negative); Shigella/Enteroinvasive Ecoli Negative (Negative)
== END 2023-05-22 16:11 | disposition home or self-care (01) ==
LOC: NCHCN 16:10
PROVIDERS: PCP Nurse Practitioner Family; Visit Provider Nurse Practitioner
DX: D64.9 Anemia, unspecified (principal); K92.1 Melena; R19.7 Diarrhea, unspecified
CPT/HCPCS: 87505; 87177

== ENCOUNTER 2023-05-22 20:45 | Outpatient (CLI) | payer MEDICARE, SELFPAY ==
[2023-05-22 16:00] LABS: Abs Immature Grans 0.01 10^3/uL (0.0-0.06); Absolute Basophil Count 0.03 10^3/uL (0.0-0.2); Absolute Eosinophil Count 0.18 10^3/uL (0.0-0.7); Absolute Monocyte Count 0.77 10^3/uL (0.1-0.8); Absolute Neutrophil Count 3.58 10^3/uL (1.2-6.7); Basophils % 0.6; Eosinophils % 3.4; HCT 35.6 % (36.0-46.0); HGB 11.8 g/dL (11.2-15.7); Immature Grans % 0.2; Lymphocytes % 14.9; MCH 33.2 pg (27.0-33.0); MCHC 33.1 % (32.0-36.0); MCV 100 fL (80-95); MPV 13.1 fL (8.0-11.0); Monocytes % 14.3; Neutrophils % 66.6; RBC 3.55 10^6/uL (3.93-5.22); RDW 13.7 % (11.7-14.6); RDW-SD 50.4 fL; WBC 5.37 10^3/uL (4.4-10.8)
[2023-05-22 16:14] LABS: Platelet Count 81 10^3/uL (130-400)
[2023-05-22 16:15] LABS: Diff Comment PLT Morph Reviewed; RBC Morphology Normal
[2023-05-22 17:08] LABS: ALT 39 U/L (14-59); AST 29 U/L (15-37); Albumin 3.5 g/dL (3.4-5.0); Alkaline Phosphatase 125 U/L (46-116); Anion Gap 10.1 mmol/L (3-11); BUN 27 mg/dL (7-18); Bilirubin, Total 1.5 mg/dL (0.2-1.0); CO2 25.9 mmol/L (21.0-32.0); CREATININE 1.1 mg/dL (0.55-1.02); Calcium 9.4 mg/dL (8.5-10.1); Chloride 106 mmol/L (98-107); Estimated GFR 51.75 (mL/min/1.73m2); Ferritin 86 ng/mL (8-252); Glucose 138 mg/dL (74-106); Sodium 142 mmol/L (136-145); Total Protein 7.5 g/dL (6.4-8.2)
== END 2023-05-22 20:46 | disposition home or self-care (01) ==
LOC: LBO 20:45
PROVIDERS: PCP Nurse Practitioner Family; Visit Provider Nurse Practitioner
DX: D64.9 Anemia, unspecified (principal); K92.1 Melena
CPT/HCPCS: 36415; 80053; 82728; 85025

== ENCOUNTER 2023-05-25 14:51 | Outpatient (REF) | payer MEDICARE, SELFPAY ==
[2023-05-29 19:26] LABS: Calprotectin 130 mcg/g
== END 2023-05-25 14:52 | disposition home or self-care (01) ==
LOC: LBN 14:51
PROVIDERS: PCP Nurse Practitioner Family; Visit Provider Nurse Practitioner
DX: R19.7 Diarrhea, unspecified (principal)
CPT/HCPCS: 87493; 83993

== ENCOUNTER 2023-09-25 13:54 | Outpatient (CLI) | payer MEDICARE, SELFPAY ==
[2023-09-25 15:25] LABS: Anion Gap 11.7 mmol/L (3-11); BUN 24 mg/dL (7-18); CO2 27.3 mmol/L (21.0-32.0); CREATININE 1.1 mg/dL (0.55-1.02); Chloride 105 mmol/L (98-107); Estimated GFR 51.75 (mL/min/1.73m2); Glucose 170 mg/dL (74-106); Sodium 144 mmol/L (136-145)
[2023-09-25 15:35] LABS: Calcium 9.6 mg/dL (8.5-10.1)
== END 2023-09-25 13:55 | disposition home or self-care (01) ==
LOC: LBO 13:54
PROVIDERS: PCP Nurse Practitioner Family; Visit Provider Nurse Practitioner
DX: N17.9 Acute kidney failure, unspecified (principal)
CPT/HCPCS: 36415; 80048

== ENCOUNTER 2024-06-10 02:05 | Outpatient (CLI) | payer MEDICARE, SELFPAY ==
--- NOTE | 2024-06-10 06:15 | DI.US_ITS ---
Exam(s) US CAROTID EXAM: US CAROTID CLINICAL HISTORY: F/U RT CAROTID STENOSIS,I65.21. TECHNIQUE: Ultrasound carotids performed using grayscale, color-flow, and spectral Doppler imaging. COMPARISON: US US CAROTID from 08/24/2022 FINDINGS: CAROTID ARTERIES: There is some plaque demonstrated at the level the carotid bulbs and proximal inter nal carotid arteries bilaterally, this being more prominent on the right side. There are mildly elev ated velocities in the mid and distal right ICA in the neck maximum peak systolic velocity 145 cm/sec . Estimated at 50-69 percent stenosis. There is some plaque at similar location on the opposite-lef t side but without elevated velocities indicating amount of stenosis less than 50 percent. VERTEBRAL ARTERIES: Antegrade flow demonstrated in both vertebral arteries.. Measurements: R Bulb: 69.8cm/s PS / 18cm/s ED R CCA: 60.8cm/s PS / 15.4cm/s ED R ECA: 113cm/s PS / 23.7cm/s ED R ICA Prox: 86.9cm/s PS / 32.5cm/s ED R ICA Mid: 119.6cm/s PS / 41.2cm/s ED R ICA Distal: 144.8cm/s PS /39.2cm/s ED R Vert: 40.9cm/s PS / 13.4cm/s ED R SVR: 2 R DVR: 2.7 L Bulb: 83.8cm/s PS / 21.7cm/s ED L CCA: PS / 21.7cm/s ED L ECA: 114.8cm/s PS / 18.1cm/s ED L ICA Prox: 100.2cm/s PS / 36.3cm/s ED L ICA Mid: 107.5cm/s PS / 34.5cm/s ED L ICA Distal: 103.9cm/s PS / 34.5cm/s ED L Vert: 53cm/s PS / 22.2cm/s ED L SVR: 1.3 L DVR: 1.6 IMPRESSION: Plaque in both carotid bulbs and proximal ICAs, more so on the right side where there are mildly elev ated velocities indicating right-sided stenosis of approximately 50-69 percent. Amount of stenosis o n the opposite-left side is less than 50 percent. Antegrade flow is demonstrated in both vertebral arteries. Occasional irregular heart beats noted during this doppler study. Criteria for Carotid Stenosis: Normal: ICA PSV <125 cm/s no plaque or intimal thickening is visible. <50% stenosis: ICA PSV <125 cm/s and plaque or intimal thickening is visible. 50-69% stenosis: ICA PSV is 125-250 cm/s and plaque is visible. >70% stenosis to near occlusion: ICA PSV >250 cm/s with visible plaque and luminal narrowing. DATA REPOSITORY:
== END 2024-06-10 02:25 ==
LOC: DI 02:05
PROVIDERS: PCP Nurse Practitioner; Visit Provider Nurse Practitioner
DX: I65.21 Occlusion and stenosis of right carotid artery (principal)
CPT/HCPCS: 93880

== ENCOUNTER 2024-10-15 14:30 | Outpatient (CLI) | payer MEDICARE, SELFPAY ==
[2024-10-16 10:30] LABS: Lyme Ab w Rflx to Lyme Confirm Negative (Negative)
[2024-10-18 11:58] LABS: Anaplasma phagocytophilum Negative (Negative); B. miyamotoi PCR Negative (Negative); Babesia divergens/MO-1 Negative (Negative); Babesia duncani Negative (Negative); Babesia microti Negative (Negative); Ehrlichia chaffeensis Negative (Negative); Ehrlichia ewingii/canis Negative (Negative); Ehrlichia muris eauclairensis Negative (Negative)
== END 2024-10-15 14:31 | disposition home or self-care (01) ==
LOC: LBO 14:30
PROVIDERS: PCP Nurse Practitioner; Visit Provider Family Medicine
DX: T14.90XA Injury, unspecified, initial encounter (principal); W57.XXXA Bitten or stung by nonvenomous insect and other nonvenomous arthropods, initial encounter
CPT/HCPCS: 36415; 87798; 86618

== ENCOUNTER 2025-01-07 08:35 | Outpatient (CLI) | payer MEDICARE, SELFPAY ==
--- NOTE | 2025-01-07 08:30 | RT.EKG_ITS ---
APPROVED REPORT Exam: Resting ECG Reason for Exam: Cardiac history Patient Location: O HR:82 bpm ECG Measurements Heart Rate 82 AXIS OH 134 P 27 QRSd 134 QRS -40 QT 435 T 19 QTc 508 Conclusion Sinus rhythm...normal P axis, V-rate 50- 99 Left anterior fascicular block
== END 2025-01-07 08:36 | disposition home or self-care (01) ==
LOC: DI.KIM 08:36
PROVIDERS: PCP Nurse Practitioner; Visit Provider Family Medicine
DX: Z98.890 Other specified postprocedural states (principal); I48.92 Unspecified atrial flutter; I44.4 Left anterior fascicular block
CPT/HCPCS: 93010

== ENCOUNTER 2025-01-07 14:50 | Outpatient (CLI) | payer MEDICARE, SELFPAY ==
[2025-01-07 10:22] LABS: Abs Immature Grans 0.01 10^3/uL (0.0-0.06); HCT 34.6 % (36.0-46.0); HGB 11.7 g/dL (11.2-15.7); Immature Grans % 0.2 %; MCH 33.6 pg (27.0-33.0); MCHC 33.8 % (32.0-36.0); MCV 99 fL (80-95); MPV 13.1 fL (8.0-11.0); RBC 3.48 10^6/uL (3.93-5.22); RDW 13.9 % (11.7-14.6); RDW-SD 50.5 fL; WBC 4.62 10^3/uL (4.4-10.8)
[2025-01-07 10:34] LABS: Ammonia 33 umol/L (11-32)
[2025-01-07 10:36] LABS: Glucose Negative (Negative)
[2025-01-07 10:36] LABS: Platelet Count 59 10^3/uL (130-400); RBC Morphology Normal
[2025-01-07 10:41] LABS: RBC Negative HPF (0-2); WBC Negative HPF (0-5)
[2025-01-07 10:42] LABS: C & S Indicated? No
[2025-01-07 10:43] LABS: Hemoglobin A1C 6.1 % (<5.7)
[2025-01-07 11:03] LABS: ALT 39 U/L (14-59); AST 31 U/L (15-37); Albumin 3.1 g/dL (3.4-5.0); Alkaline Phosphatase 123 U/L (46-116); Anion Gap 9.0 mmol/L (3-11); BUN 30 mg/dL (7-18); Bilirubin, Total 1.6 mg/dL (0.2-1.0); CO2 27.0 mmol/L (21.0-32.0); Calcium 9.5 mg/dL (8.5-10.1); Calculated LDL 47 mg/dL (<100); Chloride 106 mmol/L (98-107); Cholesterol 110 mg/dL (<200); Estimated GFR 65.44 (mL/min/1.73m2); Glucose 142 mg/dL (74-106); HDL Cholesterol 34 mg/dL (>or=50); Potassium 4.1 mmol/L (3.5-5.1); Sodium 142 mmol/L (136-145); TSH 1.33 uIU/mL (0.36-3.74); Total Protein 6.6 g/dL (6.4-8.2); Triglyceride 147 mg/dL (<150)
[2025-01-07 11:13] LABS: Uric Acid 4.4 mg/dL (2.6-6.0)
== END 2025-01-07 14:51 | disposition home or self-care (01) ==
PROVIDERS: PCP Nurse Practitioner; Visit Provider Family Medicine
DX: E78.5 Hyperlipidemia, unspecified (principal); Z13.9 Encounter for screening, unspecified; N18.31 Chronic kidney disease, stage 3a; E79.0 Hyperuricemia without signs of inflammatory arthritis and tophaceous disease; R53.83 Other fatigue; E11.9 Type 2 diabetes mellitus without complications; K74.60 Unspecified cirrhosis of liver
CPT/HCPCS: 80053; 80061; 81003; 81015; 82140; 83036; 84443; 84550; 85025

== ENCOUNTER 2025-01-15 04:59 | Emergency (ER) | payer MEDICARE, SELFPAY ==
[2025-01-15] VITALS (48 sets, daily range): BP systolic 107–153; BP diastolic 38–98; PULSE 57–166; RESP 12–33; TEMP 36.6; O2SAT 90–96
--- NOTE | 2025-01-15 05:00 | RT.EKG_ITS ---
APPROVED REPORT Exam: Resting ECG Reason for Exam: high heart rate Patient Location: E HR:165 bpm ECG Measurements Heart Rate 165 AXIS LA 128 P -85 QRSd 88 QRS -43 QT 314 T 53 QTc 520 Conclusion Supraventricular tachycardia...V-rate>(220-age), QRSd<120 Probable LVH with secondary repol abnrm...multiple LVH criteria Inferior infarct, old...Q >35mS, II III aVF SVT vs Aflutter NS ST changes likely rate related Borderline left axis Normal interval
--- NOTE | 2025-01-15 05:02 | ED.GENADUL_ITS ---
Discharge Plan Discharge Details Chief Complaint: Arrhythmia Primary Care Provider: Elba Juarez ED Provider: Justin Walker Home Meds and New Rx's Prescriptions: No Action Slow-Mag 71.5 mg tablet,delayed release (DR/EC) 71.5 mg PO BID Qty: 180 0RF folic acid 1 mg tablet 1 mg PO DAILY Qty: 90 3RF atorvastatin 40 mg tablet See Rx Instructions .ROUTE .COMPLEX Qty: 90 3RF Dose Instruction: TAKE ONE TABLET BY MOUTH EVERY DAY TO LOWER CHOLESTEROL Rx Instructions: TAKE ONE TABLET BY MOUTH EVERY DAY TO LOWER CHOLESTEROL glimepiride 4 mg tablet 4 mg PO DAILY spironolactone 25 mg tablet 12.5 mg PO BID (DME) diabetic shoes See Rx Instructions .Route .MEDSUPPLY Qty: 1 0RF Rx Instructions: As directed doxycycline hyclate 100 mg capsule 100 mg PO BID Qty: 28 0RF fluticasone propion-salmeterol 115-21 mcg/actuation HFA aerosol inhaler 2 puff inhalation BID Qty: 12 11RF multivitamin [Daily Vitamin] 1 EACH tablet 1 ea PO DAILY fluticasone propionate 16 GM spray,suspension 50 mcg NS DAILY PRN Patient Comments: 05/15/14 Uses prn. mkf Rx Instructions: per [facility] 10/23/12 ([facility] [place] OneTouch Ultra Test 1 EACH strip 1 ea Miscellaneous DAILY Qty: 100 Rx Instructions: to check BS for DM 250.00 to keep A1c under 7.0 (DME) lancets [OneTouch Delica Lancets] 1 EACH misc 1 ea Miscellaneous DAILY Qty: 100 Rx Instructions: to check BS for DM 250.00 to keep A1c under 7.0. albuterol sulfate [Proventil HFA] 6.7 GM HFA aerosol inhaler 1 - 2 puff Inhalation Q4-6H PRN Qty: 1 3RF Rx Instructions: Dispense whichever brand albuterol inhaler is covered by insurance cholecalciferol (vitamin D3) 25 mcg (1,000 unit) tablet 25 mcg PO DAILY carvedilol 12.5 mg tablet 12.5 mg PO BID Rx Instructions: must administer with a meal/food iron sucrose [Venofer] 200 mg iron/10 mL solution 200 mg IV QWEEK Rx Instructions: x2 infusions at [facility] insulin lispro 100 unit/mL cartridge See Rx Instructions subcut USEASDIRECTD Rx Instructions: Inject 1-12 units subcutaneously 3 times daily (before meals). Ok to use Humalog pen instead of cartridges. 1u:10g carb for high carb meals TID and extra if high >150 (correction of 25) qid prn subcut use as directed; 03/07/22 [facility] Endo: 8 units lunch and breakfast, 5 units at dinner. Continue 2-5 units at bedtime 08/29/22 increase humalog to 8U at noon, 8U am, 5U dinner, 2-5U hs acetaminophen 500 mg tablet 1,000 mg PO Q8H PRN (Reason: pain) Rx Instructions: Limit to 2000 mg daily furosemide 20 mg tablet 20 mg PO DAILY Qty: 90 1RF metformin 1,000 mg tablet 1,000 mg PO DAILY Qty: 1 Patient Comments: 02/28/24 ov allopurinol 100 mg tablet See Rx Instructions .ROUTE .COMPLEX Qty: 180 3RF Dose Instruction: TAKE ONE TABLET BY MOUTH TWICE A DAY Rx Instructions: TAKE ONE TABLET BY MOUTH TWICE A DAY Mounjaro 7.5 mg/0.5 mL pen injector 7.5 mg subcut QWEEK omeprazole 20 mg capsule,delayed release(DR/EC) See Rx Instructions .ROUTE .COMPLEX Qty: 90 3RF Dose Instruction: TAKE ONE CAPSULE BY MOUTH EVERY DAY AT LEAST 30 MIN. BEFORE FIRST MEAL Rx Instructions: TAKE ONE CAPSULE BY MOUTH EVERY DAY AT LEAST 30 MIN. BEFORE FIRST MEAL insulin glargine [Lantus Solostar U-100 Insulin] 100 unit/mL (3 mL) insulin pen 22 unit Sub-Q QAM Patient Comments: 02/28/24 ov insulin lispro [Humalog KwikPen Insulin] 100 unit/mL insulin pen 22 unit subcut QAM Patient Comments: 02/28/24 ov Rx Instructions: 12u with lunch and 15u before dinner HPI General Mode of arrival: ambulatory . Date/Time Provider Initiated Documentation: 01/15/25 05:02 . Limitations to Documentation: no limitations . Information obtained by: patient, RN notes reviewed and old records reviewed . HPI Narrative: Patient presents to ED with elevated heart rate. Patient was woke from sleep by her glucose monitor which signaled her at a level right around 200. While she was pondering what could have caused this she noticed discomfort and fluttering in her chest as well as a little bit of breathlessness. Did not really have pain or pressure. She got up and got her pulse ox which registered her heart rate around 160. She has a history of atrial flutter status post ablation in August 2023. At that time she had no symptoms but was playing with her pulse oxi meter which consistently read her heart rate at 130. She just had her annual physical 8 days ago. She was started on doxycycline for an episode of EM over the summer for which she was not treated. Otherwise there have been no changes and she has been doing well. Denies any recent illness, specifically no fever, cough, vomiting, diarrhea, urinary symptoms. Related Data Home Medications ?Medication ?Instructions ?Recorded ?Confirmed fluticasone propionate 50 50 mcg NS DAILY PRN 10/28/12 01/15/25 mcg/actuation nasal spray,suspension multivitamin (Daily Vitamin tablet) 1 ea PO DAILY 05/1201/15/25 blood sugar diagnostic ([place] #100 strips 09/03/15 01/15/25 Ultra Test strips) lancets 33 gauge ([place] Delica #100 ea 09/03/15 Lancets) albuterol sulfate 90 mcg/actuation 1 - 2 puff inhalati on Q4-6H PRN #1 06/20/17 01/15/25 aerosol inhaler (Proventil HFA) inh magnesium chloride 71.5 mg 71.5 mg PO BID #180 tab-cap s 01/23/19 01/15/25 (magnesium chloride) tablet,delayed release (Slow-Mag) cholecalciferol (vitamin D3) 25 25 mcg PO DAILY 01/15/25 mcg (1,000 unit) tablet carvedilol 12.5 mg tablet 12.5 mg PO BID 02/03/2212/29 iron sucrose 200 mg iron/10 mL 200 mg IV QWEEK 2 01/15/25 intravenous solution (Venofer) spironolactone 25 mg tablet 12.5 mg PO BID 07/27/22 insulin lispro 100 unit/mL See Rx Instructions subcut 09/06/22 01/15/25 subcutaneous cartridge USEASDIRECTD acetaminophen 500 mg tablet 1,000 mg PO Q8H PRN pain 0 11/03/22 01/15/25 diabetic shoes #1 ea 03/13/23 01/15/25 glimepiride 4 mg tablet 4 mg PO DAILY 05/22/2301/15 furosemide 20 mg tablet 20 mg PO DAILY #90 tabs 05/01/15/25 metformin 1,000 mg tablet 1,000 mg PO DAILY #1 tab-cap 03/04/24 01/15/25 atorvastatin 40 mg tablet See Rx Instructions .Route 0 05/19/24 01/15/25 .COMPLEX #90 tabs folic acid 1 mg tablet 1 mg PO DAILY #90 tabs 05/1901/15/25 allopurinol 100 mg tablet See Rx Instructions .Route 0 06/23/24 01/15/25 .COMPLEX #180 tabs tirzepatide 7.5 mg/0.5 mL 7.5 mg subcut QWEEK 08/12/24 01/15/25 subcutaneous pen injector (Morris) omeprazole 20 mg capsule,delayed See Rx Instructions . Route 09/25/24 01/15/25 release .COMPLEX #90 caps doxycycline hyclate 100 mg capsule 100 mg PO BID #28 c aps 01/07/25 01/15/25 fluticasone propionate 115 2 puff inhalation BID #12 g carol 01/07/25 01/15/25 mcg-salmeterol 21 mcg/actuation HFA inhaler insulin glargine 100 unit/mL (3 22 unit subcut QAM 02/2101/15/25 mL) subcutaneous pen (Lantus Solostar U-100 Insulin) insulin lispro 100 unit/mL 22 unit subcut QAM 01/07/25 01/15/25 subcutaneous pen (Humalog KwikPen (U-100) Insulin) Previous Rx's ?Medication ?Instructions ?Recorded albuterol sulfate 90 mcg/actuation 1 - 2 puff inhalati on Q4-6H PRN #1 06/20/17 aerosol inhaler (Proventil HFA) inh magnesium chloride 71.5 mg 71.5 mg PO BID #180 tab-cap s 01/23/19 (magnesium chloride) tablet,delayed release (Slow-Mag) diabetic shoes #1 ea 03/13/23 furosemide 20 mg tablet 20 mg PO DAILY #90 tabs 08/29 atorvastatin 40 mg tablet See Rx Instructions .Route 0 05/19/24 .COMPLEX #90 tabs folic acid 1 mg tablet 1 mg PO DAILY #90 tabs 05/19 allopurinol 100 mg tablet See Rx Instructions .Route 0 06/23/24 .COMPLEX #180 tabs omeprazole 20 mg capsule,delayed See Rx Instructions . Route 09/25/24 release .COMPLEX #90 caps doxycycline hyclate 100 mg capsule 100 mg PO BID #28 c aps 01/07/25 fluticasone propionate 115 2 puff inhalation BID #12 g carol 01/07/25 mcg-salmeterol 21 mcg/actuation HFA inhaler Allergies Allergy/AdvReac Type Severity Reaction Status Date / Time Sulfa (Sulfonamide Allergy Intermediate hives Verified 01/07/25 07:57 Antibiotics) Carbonic Anhydrase Inhibitors Allergy Unknown unknown Verified 01/07/25 07:57 metoclopramide HCl (From Allergy Unknown hives Verified 01/07/25 07:57 Reglan) house dust Allergy itching Verified 01/07/25 07:57 house dust mite Allergy Itching Verified 01/07/25 07:57 losartan AdvReac Severe Other (See Verified 01/07/25 07:57 Comment) benazepril AdvReac Intermediate cough Verified 01/07/25 07:57 oxycodone AdvReac Mild vomiting Verified 01/07/25 07:57 Exam Narrative Exam Narrative: Const: Obese, elderly female in NAD. VS per triage. HEENT: NC/AT. Normal facial exam. Neck: Supple. Trachea midline. Lungs: Normal respiratory effort. Lungs are clear. Cor: Tachycardic but regular, strong radial pulses. GI: Soft/ND/NT. Neuro: A+O x 3. Normal speech, mentation, gait. Cranial nerves II - XII grossly intact. No gross motor or sensory deficit. Ext: No C/C/E. Medical Decision Making Patient presenting to ED with fast heart rate. She was woke from sleep by her glucose alarm. She felt some fluttering in her chest and a little shortness of breath prompting her to check pulse oximeter which read her heart rate in the 160 range. Monitor and EKG suggest SVT versus atrial flutter but is very regular. There are some nonspecific ST changes likely rate related. Attempted the modified Valsalva maneuver with no change. IV was established and given the possibility of SVT she was given 6 mg of adenosine with a short pause. Subsequently given 12 mg adenosine with a longer pause that suggest P waves. She then went back to 160 I suspect she is in atrial flutter once again. In review of the cardiology record from [facility] in August 2023 she was controlled with diltiazem prior to her ablation. Will give 20 mg IV and monitor. Laboratory studies sent, fairly unremarkable last week at her annual visit. 06:45 -after the bolus of diltiazem patient converted to sinus rhythm. Repeat EKG shows sinus rhythm with left axis no acute ST changes. Laboratory studies fairly unremarkable except for magnesium of 1.4 which will be repleted intravenously. Blood sugar here is 178. Liver functions little elevated as they have been variable in the past. Initial troponin negative. Second troponin and D-dimer still pending. Will plan to send EKGs and rhythm strip to [facility] cardiology to review and will consult for disposition. 07:00 - Ddimer > 1000, CTA ordered. Discussed above with patient and she is aware of CTA as well as requested cardiology consult. Signed out to oncoming ED physician, Dr. Cano. Medical Records Medical records reviewed: Yes I reviewed the patient's medical records. Medical records narrative: Most recent annual visit as well as previous cardiology notes Lab Data Lab results reviewed: Yes I reviewed the patient's lab results. Lab results narrative: See [facility] ECG Data Attestation: I personally reviewed and interpreted this ECG (s) as follows: Prior ECG tracings: available for review Interpretation: See MDM/EKG Quality:SDOH Health Related Social Needs: Health related social needs lonely/isolated Critical Care Time Critical Care Time Critical Care Time: Yes Total Critical Care Time: 45 Attestation: Upon my evaluation, this patient had a high probability of imminent or life- threatening deterioration, which required my direct attention, intervention, and personal management. I have personally provided 45 minutes of critical care time exclusive of time spent on separately billable procedures. Time includes monitoring for potential decompensation, ordering of tests and medications, review of laboratory and radiology results, discussion with consultants and documentation . Interventions were performed as documented above in procedures. PFSH All Active Problems Stage 3a chronic kidney disease (CKD) (Acute) Other cirrhosis of liver (Acute) 08/28/24 [facility] [place] Gastro note.HE Abnormal uterine bleeding (Acute ~06/2024) with increased endometrial stripe thickness - surgery planned Atrial flutter (Acute) History of cardiac radiofrequency ablation (Acute) Done at [facility] 09/18/2023 for A-Flutter 2:1 Macrocytosis (Acute 04/11/23) 07/07/24 Hem/Onc visit Iron deficiency anemia secondary to blood loss (chronic) (Acute) 02/22/23 GI GAVE (gastric antral vascular ectasia) (Acute) 01/17/23 EGD () Esophageal varices (Acute) 01/17/23 EGD () Paronychia of great toe of left foot (Acute) Microalbuminuria due to type 2 diabetes mellitus (Acute) Mitral valve prolapse determined by imaging (Acute) Echo, 09/18, moderate; repeat 2 years Polypharmacy (Acute) Cirrhosis (Chronic) 01/17/23-sm (<5mm)esophageal varices EGD at [facility] Primary osteoarthritis, left shoulder (Acute ~04/2021) 05/02/21 [facility] Ortho note Primary osteoarthritis, right shoulder (Acute ~04/2021) 05/02/21 [facility] Ortho note Iron deficiency anemia (Chronic) 04/05/21 [facility] Hem Onc note; 05/19/21 EGD/colo [facility] showing evidence of cirrhosis & inflammatory polyps, both of which could explain some anemia; 05/22/2022 [facility] GI note: IV Fe through Nephro, plan to consider repeating EGD for tx of antral polyps if MARIJA doesn't improve Psoriasis (Chronic) plantar, quiescent Lymphopenia (Acute) Thrombocytopenia (Chronic) R/t cirrhosis Gout (Chronic) Obesity (Chronic) Hyperuricemia (Acute) [facility] [place] [place] Nephrology Thyroid nodule (Acute) 03/2020 Dr Paul. 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 Ortega); Both calcium oxalate and uric acid nephrolithiasis Allopurinol Rx, hydration, avoid high oxalate foods Obstructive sleep apnea, adult (Chronic 07/03/13) CPAP; [facility] Sleep Medicine Hypomagnesemia (Chronic 03/06/14) Hyperlipidemia (Chronic 01/04/12) 03/2018 labs: adequate response to high intensity statin therapy, continue Type 2 diabetes mellitus (Chronic 10/28/12) managed at [facility] and ROBERT, goal <7.5 Chronic rhinitis (Chronic 01/04/12) Asthma (Chronic 01/04/12) Arthritis (Chronic 01/31/17) [facility] [place] mid-foot bilaterally w/posterioir tibial tendon dysfunction Medical History CKD (chronic kidney disease) Tick bite of neck 11/11/24 [facility] Endo note Breast pain, right (~10/2023) 10/30/23 seen by General Surgery - thought to be referred pain from shoulder Actinic keratitis COVID 03/29/23 Other acquired deformities of left foot (~2016) 06/17/21 [facility] Wound care for Foot Care Other acquired deformities of right foot (~2016) 06/17/21 [facility] Wound Care for Foot Care Atypical ductal hyperplasia of right breast (~05/2021) 06/15/2020 mammogram ([facility]); 06/16/2021 mammogram ([facility] [place]) normal 08/12/24 F/u Gen Surgery Tubular adenoma of colon (05/19/21) Ascending and transverse TA x8 Basal cell carcinoma (BCC) of back Dermatochalasis of both upper eyelids S/p blepharoplasty 04/2020 DVT (deep venous thrombosis) 10/30/19-presumptive DVT of posterior L leg s/p TKA Carpal tunnel syndrome (07/17/12) right, severe -- left borderline; s/p endoscopic right carpal tunnel deco mpression.[facility] Benign neoplasm of colon (01/04/12) Surgical History H/O cardiac radiofrequency ablation (~2023) History of blepharoplasty (~05/14/20) For dermatochalasis of both upper eyelids H/O endoscopy 05/2021 cirrhosis 01/17/2320-ABJV-ysrpnv 1 yr-multiple antral gastric hyperplastic polyps, few sm duodenal hyperplastic polyps 11/14/23-[facility], Jaime Brownlee MD. repeat prn for retreatment if anemia persists and pending pathology. 05/22/24-[facility] Upper GI Endoscopy; Jaime Brownlee MD. (Follow up of gastric polyps)There were no varices.Mild hypertensive gastropathy. multiple recurrent hyperplastic gastric and duodenal polyps,while these may be the source of mild intermittent bleeding they were multiple and typically recur even after polypectomy so repeat resection deferred. consider surveillance EGD in 2 yrs or sooner if anemia worsens. S/P skin biopsy (~03/04/21) R nasal sidewall Status post total knee replacement (10/13/19) left History of partial mastectomy of right breast (03/06/13) H/O bilateral oophorectomy 2009 History of total knee arthroplasty (06/12/19) left, [facility] S/P total knee arthroplasty (05/02/19) 05/02/2019 Right [facility] [facility]paedics History of removal of ureteral stent [facility] [place] 12/11/18 H/O colonoscopy with polypectomy (01/30/18) Mendez Gore MD [facility] inflammaroty polyp and hyperplastic poloy Family History (Updated 01/07/25 @ 08:21 by Amber Cheema RN) Mother , age 47 Breast cancer Ovarian cancer Brother Colon cancer Brother Stroke Father Heart disease Social History Smoking/Tobacco Use Status: Never Tobacco: How many years used: 0 Smoking risk assessment performed?: Yes Alcohol Intake: never Drug use: Never Substance use type: does not use Household members: spouse Housing: house Number of Children: 4 number of grandchildren: 6 Education Level: college 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
[2025-01-15] MEDS: Adenosine 6 MG/2 ML VIAL IVP (05:24)
[2025-01-15] MEDS: Adenosine 6 MG/2 ML VIAL (05:27)
[2025-01-15 05:42] LABS: Abs Immature Grans 0.01 10^3/uL (0.0-0.06); HCT 33.9 % (36.0-46.0); HGB 11.5 g/dL (11.2-15.7); Immature Grans % 0.2 %; MCH 33.3 pg (27.0-33.0); MCHC 33.9 % (32.0-36.0); MCV 98 fL (80-95); RBC 3.45 10^6/uL (3.93-5.22); RDW 13.8 % (11.7-14.6); RDW-SD 49.9 fL; WBC 5.30 10^3/uL (4.4-10.8)
[2025-01-15] MEDS: dilTIAZem 25 MG/5 ML VIAL 20 MG IVP (05:52)
--- NOTE | 2025-01-15 06:00 | RT.EKG_ITS ---
APPROVED REPORT Exam: Resting ECG Reason for Exam: Tachycardia Patient Location: E HR:86 bpm ECG Measurements Heart Rate 86 AXIS OR 154 P -6 QRSd 96 QRS -41 QT 402 T 10 QTc 480 Conclusion Sinus rhythm...normal P axis, V-rate 60- 99 Inferior infarct, old...Q >35mS, II III aVF Left [place] No acute ST changes.
[2025-01-15 06:04] LABS: Platelet Count 60 10^3/uL (130-400); RBC Morphology Normal
[2025-01-15 06:07] LABS: ALT 41 U/L (14-59); AST 38 U/L (15-37); Albumin 3.0 g/dL (3.4-5.0); Alkaline Phosphatase 132 U/L (46-116); Anion Gap 10.6 mmol/L (3-11); BUN 28 mg/dL (7-18); Bilirubin, Total 1.4 mg/dL (0.2-1.0); CO2 25.4 mmol/L (21.0-32.0); Calcium 9.0 mg/dL (8.5-10.1); Chloride 107 mmol/L (98-107); Estimated GFR 57.66 (mL/min/1.73m2); Glucose 178 mg/dL (74-106); Magnesium 1.4 mg/dL (1.8-2.4); Potassium 3.9 mmol/L (3.5-5.1); Sodium 143 mmol/L (136-145); TSH (W/Ref FT4) 1.58 uIU/mL (0.36-3.74); Total Protein 6.5 g/dL (6.4-8.2); Troponin I 15 ng/L (<or=51)
[2025-01-15 06:36] LABS: D-Dimer 1318 ng/mlFEU (<500)
--- NOTE | 2025-01-15 06:49 | DI.CT_ITS ---
Exam(s) CT CHEST PE CTA EXAM: CT CHEST PE CTA CLINICAL HISTORY: SVT, SOB, elevated d-dimer. TECHNIQUE: Imaging Protocol: Axial CT angiography was performed with multi- slice acquisition and multi-planar and/or 3D reconstructions. Lung Computer Aided Detection (CAD) was utilized. CONTRAST MATERIAL: Intravenous: Omnipaque 350 contrast volume:100 mL COMPARISON: CT RENAL COLIC WO CONTRAST from 10/02/2010 CT RENAL COLIC WO CONTRAST from 08/13/2014 FINDINGS: Tracheobronchial tree: Patent where visualized. No bronchiectasis. Pulmonary parenchyma: No consolidation or dominant measurable mass. No architectural distortion. There is poor inspiration with areas of atelectasis. Pulmonary Arteries: No evidence of filling defect to suggest pulmonary emboli. Mediastinum and Enriqueta: No dominant adenopathy or fluid collection. The esophagus is unremarkable. Visualized thyroid gland: There is a 1.9 cm hypodense nodule in the right lobe of the thyroid gland. A nonemergent thyroid ultrasound may be obtained for further characterization. Pleura: No effusion or pneumothorax. Heart: Cardiomegaly. Coronary artery calcification is present. There is calcification of the mitral annulus. No pericardial effusion. Aorta: There is no evidence of a thoracic aortic aneurysm. Atherosclerotic calcification is present. No evidence of dissection. Upper abdomen: There is splenomegaly. Status post cholecystectomy. Soft tissues: Unremarkable. Bones: Within normal limits for the patient's age.There are marked degenerative changes seen in the shoulders bilaterally. IMPRESSION: 1. No evidence of pulmonary embolism, thoracic aortic dissection or aneurysm. 2. 1.9 cm right thyroid nodule. A nonemergent thyroid ultrasound is recommended for further characterization. 3. No acute pulmonary process. RADIATION DOSE DELIVERED: 237.14mGy.cm Total DLP DATA REPOSITORY: All CT scans at this facility are submitted to the National Radiology Data Registry (NRDR) Dose Index Registry (DIR) with the [employer] (ACR). RADIATION OPTIMIZATION: All CT scans at this facility use at least one of these dose optimization techniques: automated exposure control; mA and/or kV adjustment per patient size (includes targeted exams where dose is matched to clinical indication); or iterative reconstruction.
[2025-01-15] MEDS: dilTIAZem 25 MG/5 ML VIAL 15 MG IVP (07:17)
[2025-01-15] MEDS: MAGNESIUM SULFATE 2 GM/50 ML BAG IV_INF (07:18)
[2025-01-15] MEDS: Carvedilol 25 MG TAB PO (08:07)
[2025-01-15] MEDS: Omnipaque 350 MG/ML 500 ML BTL-Imaging package IJ (08:18)
[2025-01-15] MEDS: Normal Saline - Diluent 50 ML VIAL IJ (08:18)
[2025-01-15 08:25] LABS: Troponin I 19 ng/L (<or=51)
[2025-01-15] MEDS: diphenhydrAMINE 50 MG/ML VIAL 25 MG IVP (08:33)
[2025-01-15] MEDS: methylPREDNISolone SUCC 125 MG VIAL IVP (08:33)
[2025-01-15] MEDS: Apixaban 5 MG TAB PO (09:18)
[2025-01-15 09:20] LABS: Troponin I 31 ng/L (<or=51)
--- NOTE | 2025-01-15 10:03 | ED.PROG_ITS ---
Date of service: 01/15/25 Time of Service: 10:23 Medical Decision Making Patient was signed out to me pending CT imaging. Please refer to Dr. Walker's HPI, physical exam, assessment and plan. Abbreviated history, patient had a history of atrial for versus flutter, had an ablation at [facility], this was successful and was subsequently taken off of anticoagulants aside for low-dose Coreg at 12.5 mg twice daily. Patient had done well until this evening when she came in for an elevated heart rate, initially it looked like SVT, modified Valsalva failed, adenosine x 2 failed but did show evidence of a flutter versus fib. Patient was given 20 mg of Cardizem which converted her into a rate and rhythm controlled sinus. Patient subsequently went back into atrial fibrillation with rapid ventricular response in the 130s during signout, and was given a second bolus of Cardizem 15 mg and tolerated this well and converted back to a rate and rhythm controlled sinus. CTA had returned and showed no evidence of PE, small 1.9 cm right thyroid nodule, no other acute process. Discussed the case with [facility] cardiology Dr. Gentile, who recommended increasing Coreg to 25 mg twice daily, and restarting Eliquis 5 mg twice daily. Patient was then observed here for an extended period of time, she remained ch est pain-free, and vital signs remained stable with no return of her atrial fibrillation or flutter. Serial troponins were within normal limits, without significant change per protocols. Patient remained stable. Electrophysiology referral has been placed with [facility] for follow-up. New prescription for Coreg 25 mg twice daily and Eliquis 5 mg twice daily have been sent. Recommended stopping her old Coreg dose. Discussed red flags which to return. I have extensively reviewed the treatment plan and discharge instructions with the patient and their family. I have addressed all patient concerns at this time. The patient and family was made aware of what symptoms to monitor for that would warrant a return to the emergency department. Discussed the plan with the patient and family, they demonstrate verbal understanding and agreement with our assessment and plan at this time. The documentation in this chart was dictated using [employer] dictation software. Please excuse any dictation errors. FINDINGS: Tracheobronchial tree: Patent where visualized. No bronchiectasis. Pulmonary parenchyma: No consolidation or dominant measurable mass. No architectural distortion. There is poor inspiration with areas of atelectasis. Pulmonary Arteries: No evidence of filling defect to suggest pulmonary emboli. Mediastinum and Enriqueta: No dominant adenopathy or fluid collection. The esophagus is unremarkable. Visualized thyroid gland: There is a 1.9 cm hypodense nodule in the right lobe of the thyroid gland. A nonemergent thyroid ultrasound may be obtained for further characterization. Pleura: No effusion or pneumothorax. Heart: Cardiomegaly. Coronary artery calcification is present. There is calcification of the mitral annulus. No pericardial effusion. Aorta: There is no evidence of a thoracic aortic aneurysm. Atherosclerotic calcification is present. No evidence of dissection. Upper abdomen: There is splenomegaly. Status post cholecystectomy. Soft tissues: Unremarkable. Bones: Within normal limits for the patient's age.There are marked degenerative changes seen in the shoulders bilaterally. IMPRESSION: 1. No evidence of pulmonary embolism, thoracic aortic dissection or aneurysm. 2. 1.9 cm right thyroid nodule. A nonemergent thyroid ultrasound is recommended for further characterization. 3. No acute pulmonary process. Quality:SDOH Health Related Social Needs: Health related social needs lonely/isolated Critical Care Time Critical Care Time Critical Care Time: Yes Total Critical Care Time: 30 Attestation: Upon my evaluation, this patient had a high probability of imminent or life- threatening deterioration, which required my direct attention, intervention, and personal management. I have personally provided 30 minutes of critical care time exclusive of time spent on separately billable procedures. Time includes review of laboratory data, radiology results, discussion with consultants, and monitoring for potential decompensation. Interventions were performed as documented. Discharge Plan Disposition Patient Disposition: Home Condition: Good Discharge Details Clinical Impression: Atrial fibrillation with RVR, Thyroid nodule Primary Care Provider: Elba Juarez ED Provider: Ephraim Cano Home Meds and New Rx's Prescriptions: New carvedilol [Coreg] 25 mg tablet 25 mg PO BID 60 Days Qty: 120 0RF Rx Instructions: must administer with a meal/food Eliquis 5 mg tablet 5 mg PO BID 60 Days Qty: 120 0RF Discontinued cholecalciferol (vitamin D3) 25 mcg (1,000 unit) tablet 25 mcg PO DAILY No Action Slow-Mag 71.5 mg tablet,delayed release (DR/EC) 71.5 mg PO BID Qty: 180 0RF folic acid 1 mg tablet 1 mg PO DAILY Qty: 90 3RF atorvastatin 40 mg tablet See Rx Instructions .ROUTE .COMPLEX Qty: 90 3RF Dose Instruction: TAKE ONE TABLET BY MOUTH EVERY DAY TO LOWER CHOLESTEROL Rx Instructions: TAKE ONE TABLET BY MOUTH EVERY DAY TO LOWER CHOLESTEROL glimepiride 4 mg tablet 4 mg PO DAILY spironolactone 25 mg tablet 12.5 mg PO BID (DME) diabetic shoes See Rx Instructions .Route .MEDSUPPLY Qty: 1 0RF Rx Instructions: As directed doxycycline hyclate 100 mg capsule 100 mg PO BID Qty: 28 0RF fluticasone propion-salmeterol 115-21 mcg/actuation HFA aerosol inhaler 2 puff inhalation BID Qty: 12 11RF multivitamin [Daily Vitamin] 1 EACH tablet 1 ea PO DAILY fluticasone propionate 16 GM spray,suspension 50 mcg NS DAILY PRN Patient Comments: 05/15/14 Uses prn. mkf Rx Instructions: per [facility] [place] 10/23/12 ([facility] [place] OneTouch Ultra Test 1 EACH strip 1 ea Miscellaneous DAILY Qty: 100 Rx Instructions: to check BS for DM 250.00 to keep A1c under 7.0 (DME) lancets [OneTouch Delica Lancets] 1 EACH misc 1 ea Miscellaneous DAILY Qty: 100 Rx Instructions: to check BS for DM 250.00 to keep A1c under 7.0. albuterol sulfate [Proventil HFA] 6.7 GM HFA aerosol inhaler 1 - 2 puff Inhalation Q4-6H PRN Qty: 1 3RF Rx Instructions: Dispense whichever brand albuterol inhaler is covered by insurance carvedilol 12.5 mg tablet 12.5 mg PO BID Rx Instructions: must administer with a meal/food iron sucrose [Venofer] 200 mg iron/10 mL solution 200 mg IV QWEEK Rx Instructions: x2 infusions at [facility] insulin lispro 100 unit/mL cartridge See Rx Instructions subcut USEASDIRECTD Rx Instructions: Inject 1-12 units subcutaneously 3 times daily (before meals). Ok to use Humalog pen instead of cartridges. 1u:10g carb for high carb meals TID and extra if high >150 (correction of 25) qid prn subcut use as directed; 03/07/22 [facility] Endo: 8 units lunch and breakfast, 5 units at dinner. Continue 2-5 units at bedtime 08/29/22 increase humalog to 8U at noon, 8U am, 5U dinner, 2-5U hs acetaminophen 500 mg tablet 1,000 mg PO Q8H PRN (Reason: pain) Rx Instructions: Limit to 2000 mg daily furosemide 20 mg tablet 20 mg PO DAILY Qty: 90 1RF metformin 1,000 mg tablet 1,000 mg PO DAILY Qty: 1 Patient Comments: 02/28/24 ov allopurinol 100 mg tablet See Rx Instructions .ROUTE .COMPLEX Qty: 180 3RF Dose Instruction: TAKE ONE TABLET BY MOUTH TWICE A DAY Rx Instructions: TAKE ONE TABLET BY MOUTH TWICE A DAY Mounjaro 7.5 mg/0.5 mL pen injector 7.5 mg subcut QWEEK omeprazole 20 mg capsule,delayed release(DR/EC) See Rx Instructions .ROUTE .COMPLEX Qty: 90 3RF Dose Instruction: TAKE ONE CAPSULE BY MOUTH EVERY DAY AT LEAST 30 MIN. BEFORE FIRST MEAL Rx Instructions: TAKE ONE CAPSULE BY MOUTH EVERY DAY AT LEAST 30 MIN. BEFORE FIRST MEAL insulin glargine [Lantus Solostar U-100 Insulin] 100 unit/mL (3 mL) insulin pen 22 unit Sub-Q QAM Patient Comments: 02/28/24 ov insulin lispro [Humalog KwikPen Insulin] 100 unit/mL insulin pen 22 unit subcut QAM Patient Comments: 02/28/24 ov Rx Instructions: 12u with lunch and 15u before dinner Discharge Instructions Instructions: Atrial fibrillation Additional Instructions: At this time your workup has remained stable. 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 It appears that your atrial fibrillation has returned. We have sent new prescriptions, please take 25 mg of Coreg every 12 hours, and 5 mg of Eliquis every 12 hours. Please avoid any excessive caffeine. Stay well-hydrated. If you notice any worsening of your symptoms, or any new symptoms such as vomiting, diarrhea, fever, chills, shortness of breath, chest pain, numbness, weakness, or fainting , please return immediately to the emergency department for reevaluation. Please follow up with your primary care provider as soon as possible for reassessment and reevaluation. As always, it was a pleasure participating in your medical care today. Referrals: Elba Juarez NP [Primary Care Provider, Medicine]
== END 2025-01-15 10:31 | disposition home or self-care (01) ==
PROVIDERS: Emergency Medicine; Emergency Provider Student in an Organized Health Care Education/Training Program; PCP Nurse Practitioner
DX: I48.91 Unspecified atrial fibrillation (principal); E04.1 Nontoxic single thyroid nodule; Z60.8 Other problems related to social environment
CPT/HCPCS: 00123; 36415; 36416; 71275; 80053; 82962; 93005; 96365; 96375; 96376; 99291; 99292; 83735; 84443; 84484; 85025; 85379; 93010; J0153; J1200; J2919; J3475

== ENCOUNTER 2025-02-03 01:15 | Outpatient (CLI) | payer MEDICARE, SELFPAY ==
--- NOTE | 2025-02-03 07:45 | DI.US_ITS ---
Exam(s) US THYROID EXAM: US THYROID CLINICAL HISTORY: f/u 1.9 cm right thyroid nodule,e04.1. TECHNIQUE: Ultrasound thyroid performed using standard protocol. COMPARISON: No exams were available for comparison FINDINGS: ISTHMUS: 3 mm RIGHT LOBE: Size: 4.5 x 2.4 x 2.5 cm Echogenicity: Normal. Vascularity: Normal. Nodules: There are multiple nodules seen in the right thyroid gland. There is a 1.3 x 1.3 x 1.7 cm solid hypoechoic nodule in the inferior pole. There are internal punctate echogenic foci. It is consistent with a TI rads level 5 nodule. Due to its size, FNA is recommended. There are no other nodule seen on the right to warrant biopsy. LEFT LOBE: Size: 4.8 x 2.1 x 1.9 cm Echogenicity: Normal. Vascularity: Normal. Nodules: There are multiple nodules seen in the left thyroid gland. There is a 1.6 x 1.2 x 1.3 cm nodule in the upper pole. It is mixed and hypoechoic. There internal punctate echogenic foci present. It is consistent with a TI rads level 4 nodule. Due to its size, FNA is recommended. OTHER FINDINGS: None. IMPRESSION: 1. Multinodular thyroid gland. 2. Single nodule seen in each lobe that, due to their size and characteristics, FNA is recommended. DATA REPOSITORY:
== END 2025-02-03 01:35 ==
PROVIDERS: PCP Nurse Practitioner; Visit Provider Family Medicine
DX: E04.1 Nontoxic single thyroid nodule (principal)
CPT/HCPCS: 76536

== ENCOUNTER 2025-04-08 00:52 | Outpatient (CLI) | payer MEDICARE, SELFPAY ==
[2025-04-08 10:51] LABS: Abs Immature Grans 0.01 10^3/uL (0.0-0.06); HCT 30.5 % (36.0-46.0); HGB 9.9 g/dL (11.2-15.7); Immature Grans % 0.3 %; MCH 33.1 pg (27.0-33.0); MCHC 32.5 % (32.0-36.0); MCV 102 fL (80-95); RBC 2.99 10^6/uL (3.93-5.22); RDW 14.9 % (11.7-14.6); RDW-SD 56.0 fL; WBC 3.88 10^3/uL (4.4-10.8)
[2025-04-08 11:15] LABS: Ferritin 83 ng/mL (7-271)
[2025-04-08 11:24] LABS: Platelet Count 58 10^3/uL (130-400); RBC Morphology Normal
[2025-04-08 12:22] LABS: Iron 51 ug/dL (50-170)
[2025-04-08 12:23] LABS: Total Iron Binding Capacity 311 ug/dL (250-425); Transferrin Sat 16 % (15-50)
== END 2025-04-08 00:53 | disposition home or self-care (01) ==
LOC: LBO 00:52
PROVIDERS: PCP Nurse Practitioner; Visit Provider Internal Medicine
DX: D50.9 Iron deficiency anemia, unspecified (principal)
CPT/HCPCS: 36415; 82728; 83540; 83550; 85025